=== PATIENT | male | born 1965 | race African-American/Black ===

== ENCOUNTER 2017-12-02 08:51 | Emergency (ER) | payer BC, OTHER ==
[2017-12-02 09:37] VITALS: BMI 27.2
[2017-12-02] MEDS ORDERED: MAG HYDROX/AL HYDROX/SIMETH 30 ML UNIT-DOSE CUP PO ONE (12:16)
[2017-12-02] MEDS ORDERED: PANTOPRAZOLE SODIUM 40 MG in SODIUM CHLORIDE 100 ML IVPB ONE (12:16)
--- NOTE | 2017-12-02 12:31 | PDOC ---
History of Present Illness - General Chief Complaint: Pain, Acute Stated Complaint: ABD PAIN Time Seen by Provider: 12/02/17 11:52 - History of Present Illness Initial Comments: 12/02/17 12:30 "The patient is a 52 year old male with a significant PMH of HTN, hyperthyroidism, BPH, kidney CA (s/p partial nephrectomy), gastritis, and past cigarette use who presents to the emergency department with worsening abdominal pain beginning approximately 2 weeks ago. He describes his abdominal pain as a constant sensation localized in the LUQ with radiation to the mid back. Pt also endorses intermittent diarrhea and constipation. Denies any nausea/vomiting. Denies F/C. Denies association of pain with food. The patient denies chest pain, shortness of breath, headache and dizziness. Denies dysuria, frequency, urgency and hematuria. FMHx: Pertinent for NM, father had NM in his 50s Allergies: NKA Past surgical history: Partial nephrectomy Social history: Former smoker. Occasional alcohol use. No reported drug use. PCP: Dr. Jake Avalos Past History - Past Medical History Allergies/Adverse Reactions: Allergies Allergy/AdvReac Type Severity Reaction Status Date / Time No Known Allergies Allergy Verified 12/02/17 09:31 Home Medications: Ambulatory Orders Amlodipine Besylate [Norvasc -] 5 mg PO DAILY #90 tablet 06/02/15 Cyanocobalamin [Vitamin B12 -] 1,000 mcg PO DAILY #60 tablet 06/02/15 Methimazole [Tapazole -] 5 mg PO TID #90 tablet 06/02/15 Quetiapine Fumarate [Seroquel -] 25 mg PO HS 11/20/16 Esomeprazole Magnesium [Nexium 24Hr] 20 mg PO DAILY #30 tablet. 12/02/17 Anemia: No Asthma: No Cancer: Yes (KIDNEY) Cardiac Disorders: No CVA: No COPD: No DVT: No Dementia: No Diabetes: No GI Disorders: Yes (hx of stomach ulcer that was resolved) Disorders: No HTN: Yes Hypercholesterolemia: No Kidney Stones: (kidney ca) Liver Disease: No Seizures: No Thyroid Disease: Yes (HYPOTHYROID DISEASE) - Surgical History Abdominal Surgery: No Appendectomy: No Cardiac Surgery: No Cholecystectomy: No Lung Surgery: No Neurologic Surgery: No Orthopedic Surgery: No - Suicide/Smoking/Psychosocial Hx Smoking Status: Yes Smoking History: Never smoked Have you smoked in the past 12 months: No Number of Cigarettes Smoked Daily: 3 If you are a former smoker, when did you quit?: 2016 Cigars Per Day: 0 Information on smoking cessation initiated: Yes 'Breaking Loose' booklet given: 12/02/17 Hx Alcohol Use: Yes (OCCASIONAL) Drug/Substance Use Hx: No Substance Use Type: None Hx Substance Use Treatment: No Abd/GI Specific PMHX - Complaint Specific PMHX GERD: No GI Ulcer Disease: No Review of Systems - Review of Systems Comments:: 12/02/17 12:34 "GENERAL/CONSTITUTIONAL: No fever or chills. No weakness. HEAD, EYES, EARS, NOSE AND THROAT: No change in vision. No ear pain or discharge. No sore throat. CARDIOVASCULAR: No chest pain or shortness of breath. RESPIRATORY: No cough, wheezing, or hemoptysis. GASTROINTESTINAL: (+) Abdominal pain. (+) Diarrhea. No nausea, vomiting, or constipation. GENITOURINARY: No dysuria, frequency, or change in urination. MUSCULOSKELETAL: No joint or muscle swelling or pain. No neck or back pain. SKIN: No rash NEUROLOGIC: No headache, vertigo, loss of consciousness, or change in strength/ sensation. ENDOCRINE: No increased thirst. No abnormal weight change. HEMATOLOGIC/LYMPHATIC: No anemia, easy bleeding, or history of blood clots. ALLERGIC/IMMUNOLOGIC: No hives or skin allergy. " *Physical Exam - Vital Signs Last Vital Signs Temp Pulse Resp BP Pulse Ox 97.4 F L 77 18 139/93 100 12/02/17 09:31 12/02/17 09:31 12/02/17 09:31 12/02/17 09:31 12/02/17 09:31 - Physical Exam Comments: 12/02/17 12:34 "GENERAL: Awake, alert, and fully oriented, in no acute distress HEAD: No signs of trauma EYES: PERRLA, EOMI, sclera anicteric, conjunctiva clear ENT: Auricles normal inspection, hearing grossly normal, nares patent, oropharynx clear without exudates. Moist mucosa NECK: Nontender, no stepoffs, Normal ROM, supple, no lymphadenopathy, JVD, or masses LUNGS: Breath sounds equal, clear to auscultation bilaterally. No wheezes, and no crackles HEART: Regular rate and rhythm, normal S1 and S2, no murmurs, rubs or gallops ABDOMEN: +LLQ tenderness and epigastric tenderness. No guarding, no rebound. No masses EXTREMITIES: Normal range of motion, no edema. No clubbing or cyanosis. No cords , erythema, or tenderness NEUROLOGICAL: Cranial nerves II through XII intact. 5/5 strength and sensation in all extremities, Normal speech, normal gait SKIN: Warm, Dry, normal turgor, no rashes or lesions noted. " ED Treatment Course - LABORATORY CBC & Chemistry Diagram: 12/02/17 13:20 12/02/17 13:20 - RADIOLOGY Radiology Studies Ordered: Category Date Time Status ABDOMEN & PELVIS CT WITH CONTR [CT] Stat CT Scan 12/02/17 12:28 Ordered CHEST PA & LAT [RAD] Stat Radiology 12/02/17 12:15 Ordered Medical Decision Making - Medical Decision Making 12/02/17 12:34 52 M with 2 weeks of LLQ pain and diarrhea. Possible colitis vs diverticulitis. Also consider gastritis. - Labs - CTAP - IVF, GI cocktail 12/02/17 16:37 CBC,CMP WBC 4.2 K/mm3 (4.0-10.0) 12/02/17 13:20 Corrected WBC (auto) Cancelled 12/02/17 12:25 RBC 5.30 M/mm3 (4.00-5.60) 12/02/17 13:20 Hgb 16.3 GM/dL (11.7-16.9) 12/02/17 13:20 Hct 49.6 % (35.4-49) H 12/02/17 13:20 MCV 93.5 fl (80-96) 12/02/17 13:20 MCH 30.8 pg (25.7-33.7) 12/02/17 13:20 MCHC 32.9 g/dl (32.0-35.9) 12/02/17 13:20 RDW 14.3 % (11.9-15.9) 12/02/17 13:20 Plt Count 116 K/MM3 (134-434) L 12/02/17 13:20 MPV 8.7 fl (7.5-11.1) D 12/02/17 13:20 Neutrophils % 62.5 % (42.8-82.8) D 12/02/17 13:20 Lymphocytes % 27.0 % (8-40) D 12/02/17 13:20 Monocytes % 8.9 % (3.8-10.2) D 12/02/17 13:20 Eosinophils % 1.2 % (0-4.5) D 12/02/17 13:20 Basophils % 0.4 % (0-2.0) D 12/02/17 13:20 Nucleated RBC % Cancelled 12/02/17 12:25 Platelet Estimate Cancelled 12/02/17 12:25 Platelet Comment Cancelled 12/02/17 12:25 Sodium 139 mmol/L (136-145) 12/02/17 13:20 Potassium 4.3 mmol/L (3.5-5.1) 12/02/17 13:20 Chloride 105 mmol/L (98-107) 12/02/17 13:20 Carbon Dioxide 30 mmol/L (21-32) 12/02/17 13:20 Anion Gap 4 (8-16) L 12/02/17 13:20 BUN 11 mg/dL (7-18) D 12/02/17 13:20 Creatinine 1.1 mg/dL (0.7-1.3) 12/02/17 13:20 Creat Clearance w eGFR > 60 (>60) 12/02/17 13:20 Random Glucose 87 mg/dL (74-106) 12/02/17 13:20 Calcium 8.7 mg/dL (8.5-10.1) 12/02/17 13:20 Total Bilirubin 0.8 mg/dL (0.2-1.0) D 12/02/17 13:20 AST 24 U/L (15-37) 12/02/17 13:20 ALT 32 U/L (12-78) 12/02/17 13:20 Alkaline Phosphatase 96 U/L (45-117) 12/02/17 13:20 Creatine Kinase 162 IU/L (39-308) 12/02/17 13:20 Creatine Kinase Index 0.6 % (0.0-5.0) 12/02/17 13:20 CK-MB (CK-2) < 1.000 ng/mL (0.5-3.6) 12/02/17 13:20 Troponin I < 0.02 ng/ml (0.00-0.05) 12/02/17 13:20 Total Protein 7.1 g/dl (6.4-8.2) 12/02/17 13:20 Albumin 3.9 g/dl (3.4-5.0) 12/02/17 13:20 Lipase 203 U/L (73-393) 12/02/17 13:20 CTAP unremarkable. Pt reassessed s/p GI cocktail - now feels significantly better. Tolerating PO. Clinically stable for DC. *DC/Admit/Observation/Transfer Diagnosis at time of Disposition: Gastritis - Discharge Dispostion Disposition: HOME - Referrals Referrals: Jake Avalos MD [Primary Care Provider] - - Patient Instructions Printed Discharge Instructions: DI for Gastritis Additional Instructions: Follow up with your GI doctor within 1 week. You may need an endoscopy to further evaluate your stomach pain. Take nexium as prescribed to treat your stomach pain. If you experience worsening pain, vomiting, or any other concerning symptoms, return to the ER immediately. - Post Discharge Activity - Attestations Physician Attestion: 12/02/17 16:42 I, Dr. Mirza Yang MD, attest that this document has been prepared under my direction and personally reviewed by me in its entirety. I further attest, that it accurately reflects all work, treatment, procedures and medical decision -making performed by me.
[2017-12-02] MEDS ORDERED: PANTOPRAZOLE SODIUM 40 MG VIAL ONE (12:33)
[2017-12-02] MEDS ORDERED: MAG HYDROX/AL HYDROX/SIMETH 30 ML UNIT-DOSE CUP ONE (12:33)
[2017-12-02 13:31] LABS: BASO % 0.4 % (0-2.0); EOS % 1.2 % (0-4.5); HEMATOCRIT 49.6 % (35.4-49); HEMOGLOBIN 16.3 GM/dL (11.7-16.9); MCH 30.8 pg (25.7-33.7); MCHC 32.9 g/dl (32.0-35.9); MEAN CELL VOLUME 93.5 fl (80-96); MEAN PLT VOLUME 8.7 fl (7.5-11.1); MONO % 8.9 % (3.8-10.2); NEUT % 62.5 % (42.8-82.8); PLATELET COUNT 116 K/MM3 (134-434); RDW 14.3 % (11.9-15.9); WHITE BLOOD COUNT 4.2 K/mm3 (4.0-10.0)
[2017-12-02 14:11] LABS: ALBUMIN 3.9 g/dl (3.4-5.0); ALK PHOS 96 U/L (45-117); ANION GAP 4 (8-16); BILIRUBIN,TOTAL 0.8 mg/dL (0.2-1.0); BLOOD UREA NITROGEN 11 mg/dL (7-18); CALCIUM 8.7 mg/dL (8.5-10.1); CHLORIDE 105 mmol/L (98-107); CO2 30 mmol/L (21-32); CREATININE 1.1 mg/dL (0.7-1.3); GLUCOSE,RANDOM 87 mg/dL (74-106); SGPT/ALT 32 U/L (12-78); SODIUM 139 mmol/L (136-145); TOT PROT 7.1 g/dl (6.4-8.2)
[2017-12-02 14:13] LABS: LIPASE 203 U/L (73-393); POTASSIUM 4.3 mmol/L (3.5-5.1); SGOT/AST 24 U/L (15-37)
[2017-12-02] MEDS ORDERED: ACETAMINOPHEN 325 MG TABLET (FP) PO ONE (15:19)
[2017-12-02] MEDS ORDERED: ACETAMINOPHEN 325 MG TABLET (FP) ONE (16:36)
[2017-12-02 17:33] VITALS: BP 140/74; PULSE 81; TEMP 98.1
== END 2017-12-02 17:33 | disposition home or self-care (01) ==
LOC: JER 08:51
PROC: 3E033GC Introduction of Other Therapeutic Substance into Peripheral Vein, Percutaneous Approach (ICD-10-PCS; principal; 2017-12-02)
DX: K29.70 Gastritis, unspecified, without bleeding (principal); I10 Essential (primary) hypertension; E05.90 Thyrotoxicosis, unspecified without thyrotoxic crisis or storm; N40.0 Benign prostatic hyperplasia without lower urinary tract symptoms; Z85.528 Personal history of other malignant neoplasm of kidney; Z87.891 Personal history of nicotine dependence; Z90.5 Acquired absence of kidney
CPT/HCPCS: 36415; 71046-TC; 74177-TC; 80053; 82550; 82553; 83690; 84484; 85025; 99283-25

== ENCOUNTER 2018-03-05 12:59 | Emergency (ER) | payer BC, OTHER ==
[2018-03-05 13:11] VITALS: BP 145/69; PULSE 77; TEMP 98.1; BMI 27.9
--- NOTE | 2018-03-05 14:15 | PDOC ---
History of Present Illness - General Chief Complaint: Sore Throat Stated Complaint: THROAT PAIN Time Seen by Provider: 03/05/18 13:26 History Source: Patient, Old Records Exam Limitations: No Limitations - History of Present Illness Initial Comments: 03/05/18 14:10 This is a 52-year-old male past medical history of hypertension and hypothyroidism who presents emergency Department with 1 month of sore throat. Patient states he is under the care of his primary doctor, sheet metal worker supervisor and ENT who've all been doing evaluations of this throat pain. Patient states he has been on 2 different rounds of antibiotics but does not remember the names of the medications. It isn't antibiotics she was given Zantac with the original antibiotics and was changed to Prilosec with the second round of antibiotics. Patient is unsure to what the names of antibiotics were or why he was taken them. Review of the patient's chart reveals she was positive for H. pylori testing on 02/24/18. He denies fevers, chills, shortness of breath, chest pain, vomiting, nausea, vomiting, diarrhea. Past History - Past Medical History Allergies/Adverse Reactions: Allergies Allergy/AdvReac Type Severity Reaction Status Date / Time No Known Allergies Allergy Verified 03/05/18 13:07 Home Medications: Ambulatory Orders Amlodipine Besylate [Norvasc -] 5 mg PO DAILY #90 tablet 06/02/15 Anemia: No Asthma: No Cancer: Yes (KIDNEY) Cardiac Disorders: No CVA: No COPD: No DVT: No Dementia: No Diabetes: No GI Disorders: Yes (hx of stomach ulcer that was resolved) Disorders: No HTN: Yes Hypercholesterolemia: No Kidney Stones: (kidney ca) Liver Disease: No Seizures: No Thyroid Disease: Yes (HYPOTHYROID DISEASE) - Surgical History Abdominal Surgery: No Appendectomy: No Cardiac Surgery: No Cholecystectomy: No Lung Surgery: No Neurologic Surgery: No Orthopedic Surgery: No - Suicide/Smoking/Psychosocial Hx Smoking Status: Yes Smoking History: Never smoked Have you smoked in the past 12 months: No Number of Cigarettes Smoked Daily: 3 If you are a former smoker, when did you quit?: 2016 Cigars Per Day: 0 Information on smoking cessation initiated: No 'Breaking Loose' booklet given: 12/02/17 Hx Alcohol Use: No Drug/Substance Use Hx: No Substance Use Type: None Hx Substance Use Treatment: No Review of Systems - Review of Systems Able to Perform ROS?: Yes Is the patient limited Greek proficient: No Constitutional: No: Symptoms Reported HEENTM: Yes: See HPI Respiratory: No: Symptoms reported Cardiac (ROS): No: Symptoms Reported ABD/GI: No: Symptoms Reported : No: Symptoms Reported Musculoskeletal: No: Symptoms Reported Integumentary: No: Symptoms Reported Neurological: No: Symptoms reported Endocrine: No: Symptoms Reported Hematologic/Lymphatic: No: Symptoms Reported *Physical Exam - Vital Signs Last Vital Signs Temp Pulse Resp BP Pulse Ox 98.1 F 77 17 145/69 97 03/05/18 13:07 03/05/18 13:07 03/05/18 13:07 03/05/18 13:07 03/05/18 13:07 - Physical Exam General Appearance: Yes: Appropriately Dressed. No: Apparent Distress HEENT: positive: TMs Normal, Pharynx Normal Neck: positive: Trachea midline, Supple Respiratory/Chest: positive: Lungs Clear, Normal Breath Sounds. negative: Respiratory Distress, Accessory Muscle Use Cardiovascular: positive: Regular Rhythm, Regular Rate. negative: Murmur Gastrointestinal/Abdominal: positive: Normal Bowel Sounds, Soft. negative: Tender Musculoskeletal: positive: Normal Inspection. negative: CVA Tenderness Extremity: positive: Normal Inspection, Normal Range of Motion Integumentary: positive: Normal Color, Dry, Warm Neurologic: positive: Alert, Normal Response Medical Decision Making - Medical Decision Making 03/05/18 14:15 A/P: 52-year-old male with history of hypertension and hyperthyroidism with 1 month of sore throat Oropharynx clear without erythema or exudates present. Uvula midline No cervical lymphadenopathy present Patient with ultrasound report from January revealing 2 mm x 3 mm thyroid cyst. Laboratory testing positive for H. pylori infection 02/24/18. Lungs clear to auscultation bilaterally Abdomen soft nontender nondistended. It has been explained to the patient that his pain could be secondary from the thyroid cyst or could be some acid reflux related to his H. pylori infection. It was explained to the patient that he needs to continue to follow up with his primary doctor and specialist for continued evaluation of this chronic issue. Patient verbalizes understanding of discharge instructions. *DC/Admit/Observation/Transfer Diagnosis at time of Disposition: Chronic throat pain - Discharge Dispostion Disposition: HOME Condition at time of disposition: Stable Admit: No - Referrals Referrals: Jake Avalos MD [Primary Care Provider] - - Patient Instructions Additional Instructions: Patient appointment to follow-up with her ENT specialist and your primary doctor within the next week. Continue take Tylenol as needed for pain. Avoid medicines such as ibuprofen and Naprosyn as they may cause abdominal pain and bleeding. Return to emergency department for any concerns. - Post Discharge Activity
== END 2018-03-05 14:22 | disposition home or self-care (01) ==
LOC: JERFT 12:59
DX: R07.0 Pain in throat (principal); I10 Essential (primary) hypertension; E03.9 Hypothyroidism, unspecified; Z85.528 Personal history of other malignant neoplasm of kidney
CPT/HCPCS: 99281-25

== ENCOUNTER 2019-08-25 10:06 | Emergency (ER) | payer OTHER, BC ==
[2019-08-25 10:12] VITALS: BP 137/77; PULSE 75; TEMP 98.6; BMI 27.2
[2019-08-25] MEDS ORDERED: KETOROLAC TROMETHAMINE 30 MG/1 ML VIAL IM ONE (11:04)
[2019-08-25] MEDS ORDERED: KETOROLAC TROMETHAMINE 30 MG/1 ML VIAL ONE (11:05)
[2019-08-25] MEDS ORDERED: MECLIZINE HCL 25 MG TABLET (FP) PO ONE (11:08)
[2019-08-25] MEDS ORDERED: IBUPROFEN 400 MG TABLET (FP) PO ONE ×2 (11:08→11:11)
[2019-08-25] MEDS ORDERED: MECLIZINE HCL 12.5 MG TABLET ONE (11:11)
--- NOTE | 2019-08-25 11:14 | PDOC ---
History of Present Illness - General Chief Complaint: Head/Neck problem Stated Complaint: LT. NECK PAIN/ DIZZINESS Time Seen by Provider: 08/25/19 10:28 - History of Present Illness Initial Comments: 08/25/19 11:10 CHIEF COMPLAINT: neck pain HISTORY OF PRESENT ILLNESS: 54 yo M with hx of HTN (on Norvasc, per pt compliant with meds) presents to fast track with left sided neck pain x 3 days, now to left shoulder today. Patient reports waking up with neck soreness 3 days ago and "thought it would go away but now it's hurting to my left shoulder too". Patient reports pain is worse with movement, especially turning his neck. He denies any chest pain, SOB, palpitations, weakness. Denies fever, chills, nausea, vomiting, diarrhea. Patient also c/o of dizziness, denies LOC, weakness, or headache. No recent travel or sick contacts. PAST MEDICAL HISTORY: HTN FAMILY HISTORY: Father - [place]. SOCIAL HISTORY: Daily smoker, 1-2 cigarettes daily. Denies alcohol, illicit drug use. SURGICAL HISTORY: Denies ALLERGIES: No known drug allergies REVIEW OF SYSTEMS General/Constitutional: Denies fever or chills. Denies weakness, weight change. HEENT: Denies change in vision. Denies ear pain or discharge. Denies sore throat. Cardiovascular: Denies chest pain or shortness of breath. Respiratory: Denies cough, wheezing, or hemoptysis. Gastrointestinal: Denies nausea, vomiting, diarrhea or constipation. Denies rectal bleeding. Genitourinary: Denies dysuria, frequency, or change in urination. Musculoskeletal: Left neck pain, radiating to L shoulder. Skin and breasts: Denies rash or easy bruising. Neurologic: Denies headache, vertigo, loss of consciousness, or loss of sensation. Psychiatric: Denies depression or anxiety. PHYSICAL EXAM General Appearance: Well-appearing, appropriately dressed. No apparent distress , no intoxication. HEENT: EOMI, PERRLA, normal ENT inspection, normal voice, TMs normal, pharynx normal. No conjunctival pallor. No photophobia, scleral icterus. Neck: Supple. Trachea midline. No tenderness, rigidity, carotid bruit, stridor , lymphadenopathy, or thyromegaly. Respiratory/Chest: Lungs CTAB. No shortness of breath, chest tenderness, respiratory distress, accessory muscle use. No crackles, rales, rhonchi, stridor , wheezing, dullness Cardiovascular: RRR. S1, S2. No JVD, murmur, bradycardia, tachycardia. Vascular Pulses: Dorsalis-Pedis (R): 2+, Dorsalis-Pedis (L): 2+ Gastrointestinal/Abdominal: Normal bowel sounds. Abdomen soft, non-distended. No tenderness or rebound tenderness. No organomegaly, pulsatile mass, guarding , hernia, hepatomegaly, splenomegaly. Musculoskeletal/Extremities: Normal inspection. FROM of all extremities, normal capillary refill. Pelvis Stable. No CVA tenderness. No tenderness to extremities, pedal edema, swelling, erythema or deformity. Integumentary: Appropriate color, dry, warm. No cyanosis, erythema, jaundice or rash Neurologic: forensic economist II-XII intact. Fully oriented, alert. Appropriate mood/affect. Motor strength 5/5. No appreciable EOM palsy, facial droop or sensory deficit. Past History - Past Medical History Allergies/Adverse Reactions: Allergies Allergy/AdvReac Type Severity Reaction Status Date / Time No Known Allergies Allergy Verified 03/05/18 13:07 Home Medications: Ambulatory Orders Amlodipine Besylate [Norvasc -] 5 mg PO DAILY #90 tablet 06/02/15 Cyclobenzaprine HCl 10 mg PO HS #10 tablet 08/25/19 Anemia: No Asthma: No Cancer: Yes (KIDNEY) Cardiac Disorders: No CVA: No COPD: No DVT: No Dementia: No Diabetes: No GI Disorders: Yes (hx of stomach ulcer that was resolved) Disorders: No HTN: Yes Hypercholesterolemia: No Kidney Stones: (kidney ca) Liver Disease: No Seizures: No Thyroid Disease: Yes (HYPOTHYROID DISEASE) - Surgical History Abdominal Surgery: No Appendectomy: No Cardiac Surgery: No Cholecystectomy: No Lung Surgery: No Neurologic Surgery: No Orthopedic Surgery: No - Psycho Social/Smoking Cessation Hx Smoking Status: Yes Smoking History: Current every day smoker Have you smoked in the past 12 months: Yes Number of Cigarettes Smoked Daily: 10 If you are a former smoker, when did you quit?: 2016 Cigars Per Day: 0 Information on smoking cessation initiated: No 'Breaking Loose' booklet given: 12/02/17 Hx Alcohol Use: No Drug/Substance Use Hx: No Substance Use Type: None Hx Substance Use Treatment: No *Physical Exam - Vital Signs Last Vital Signs Temp Pulse Resp BP Pulse Ox 98.6 F 75 18 137/77 96 08/25/19 10:10 08/25/19 10:10 08/25/19 10:10 08/25/19 10:10 08/25/19 10:10 Medical Decision Making - Medical Decision Making 08/25/19 11:14 54 yo M with hx of HTN (on Norvasc, per pt compliant with meds) presents to fast track with left sided neck/shoulder pain and dizziness. -ekg -Motrin -Meclizine 08/25/19 11:14 no significant change on ekg from prior of 2014 patient continuously denies chest pain or SOB likely cervical muscle strain Advised patient to take medication as prescribed and follow up with PCP within the next week. Advised patient of signs and symptoms for return to ED. Patient verbalized understanding and agrees to plan. Discharge - Discharge Information Problems reviewed: Yes Clinical Impression/Diagnosis: Cervical muscle strain Qualifiers: Encounter type: initial encounter Qualified Code(s): S16.1XXA - Strain of muscle, fascia and tendon at neck level, initial encounter Condition: Stable Disposition: HOME - Admission No - Additional Discharge Information Prescriptions: Cyclobenzaprine HCl 10 mg PO HS #10 tablet - Follow up/Referral - Patient Discharge Instructions Patient Printed Discharge Instructions: DI for Cervical Muscle Strain Additional Instructions: Please take medications as prescribed. Follow up with your primary care doctor within the next 3-5 days. If you develop any chest pain, shortness of breath, weakness, or any new or worsening symptoms, please return to the ER. - Post Discharge Activity
--- NOTE | 2019-08-25 12:50 | EKG ---
Test Reason : Blood Pressure : / mmHG Vent. Rate : 072 BPM Atrial Rate : 072 BPM P-R Int : 178 ms QRS Dur : 102 ms QT Int : 402 ms P-R-T Axes : 065 -01 041 degrees QTc Int : 440 ms NORMAL SINUS RHYTHM INCOMPLETE RIGHT BUNDLE BRANCH BLOCK BORDERLINE ECG WHEN COMPARED WITH ECG OF 01-JUN-2015 02:25, NO SIGNIFICANT CHANGE WAS FOUND Confirmed by Chuy Jimenez MD ([id number]) on 08/25/2019 12:49:53 PM Referred By: Confirmed By:Chuy Jimenez MD
== END 2019-08-25 11:28 | disposition home or self-care (01) ==
LOC: JERFT 10:06
DX: S16.1XXA Strain of muscle, fascia and tendon at neck level, initial encounter (principal); I10 Essential (primary) hypertension; E03.9 Hypothyroidism, unspecified; Z85.528 Personal history of other malignant neoplasm of kidney; Z87.19 Personal history of other diseases of the digestive system; F17.210 Nicotine dependence, cigarettes, uncomplicated; X58.XXXA Exposure to other specified factors, initial encounter; Y93.89 Activity, other specified; Y92.89 Other specified places as the place of occurrence of the external cause; Y99.8 Other external cause status
CPT/HCPCS: 93005; 93010; 99282-25

== ENCOUNTER 2020-05-16 14:00 | Emergency (ER) | payer OTHER, BC ==
[2020-05-16 14:06] VITALS: BP 165/78; PULSE 98; TEMP 98; BMI 27.9
--- NOTE | 2020-05-16 14:09 | PDOC ---
Rapid Medical Evaluation Chief Complaint: Edema Time Seen by Provider: 05/16/20 14:06 Medical Evaluation: Allergies Allergy/AdvReac Type Severity Reaction Status Date / Time No Known Allergies Allergy Verified 05/16/20 14:03 Vital Signs Temp Pulse Resp BP Pulse Ox 98.0 F 98 H 20 165/78 100 05/16/20 14:04 05/16/20 14:04 05/16/20 14:04 05/16/20 14:04 05/16/20 14:04 05/16/20 14:06 I have performed a brief in-person evaluation of this patient. The patient presents with a chief complaint of:b/l testicular pain w/ dysuria Pertinent physical exam findings: stable I have ordered the following:ua/cx/Gc/chlam The patient will proceed to the ED for further evaluation. 05/16/20 14:08 Discharge Disposition - Diagnosis Dysuria - Referrals - Patient Instructions - Post Discharge Activity
--- NOTE | 2020-05-16 14:33 | PDOC ---
History of Present Illness <Aaliyah Sheridan - Last Filed: 05/16/20 16:20> - General History Source: Patient Exam Limitations: No Limitations - History of Present Illness Initial Comments: 05/16/20 14:31 54 year old male pmhx of HTN, BPH, RCC (s/p partial nephrectomy) presents to the ED complaining of testicular pain and swelling x 2 weeks with associated dysuria. Pt states that the pain and swelling worsens throughout the day. Pt is sexually active with 1 partner and has not had these symptoms in the past. Pt denies any difficulty urinating, any bulging mass in the scrotum or trouble passing stools. Pt otherwise denies: fevers, chills, syncope, lightheadedness, dizziness, headaches, chest pain, shortness of breath, palpitations, back pain, abdominal pain, nausea, vomiting, diarrhea, constipation, melena, hematochezia, hematuria. <Doug Du - Last Filed: 05/16/20 16:58> - General Chief Complaint: Edema Stated Complaint: URINARY PROBLEM Time Seen by Provider: 05/16/20 14:06 Past History <Aaliyah Sheridan - Last Filed: 05/16/20 16:20> - Medical History Anemia: No Asthma: No Cancer: Yes (KIDNEY) Cardiac Disorders: No CVA: No COPD: No DVT: No Dementia: No Diabetes: No GI Disorders: Yes (hx of stomach ulcer that was resolved) Disorders: No HTN: Yes Hypercholesterolemia: No Kidney Stones: (kidney ca) Liver Disease: No Seizures: No Thyroid Disease: Yes (HYPOTHYROID DISEASE) - Surgical History Abdominal Surgery: No Appendectomy: No Cardiac Surgery: No Cholecystectomy: No Lung Surgery: No Neurologic Surgery: No Orthopedic Surgery: No - Psycho-Social/Smoking History Smoking Status: Yes Smoking History: Never smoked Have you smoked in the past 12 months: Yes Number of Cigarettes Smoked Daily: 10 If you are a former smoker, when did you quit?: 2016 Cigars Per Day: 0 'Breaking Loose' booklet given: 12/02/17 - Substance Abuse Hx (Audit-C & DAST Scrn) How often the patient has a drink containing alcohol: Never Score: In Men: 4 or > Positive; In Women: 3 or > Positive: 0 Screen Result (Pos requires Nsg. Audit-10AR): Negative In the last yr the pt used illegal drug/Rx for NonMed reason: No Score: Yes response is considered Positive: 0 Screen Result (Positive result requires Nsg. DAST-10): Negative <FlorianDoug - Last Filed: 05/16/20 16:58> - Medical History Allergies/Adverse Reactions: Allergies Allergy/AdvReac Type Severity Reaction Status Date / Time No Known Allergies Allergy Verified 05/16/20 14:03 Home Medications: Ambulatory Orders Amlodipine Besylate [Norvasc -] 5 mg PO DAILY #90 tablet 06/02/15 Cyclobenzaprine HCl 10 mg PO HS #10 tablet 08/25/19 Review of Systems - Review of Systems Constitutional: No: Chills, Fever, Weakness HEENTM: No: Blurred Vision Respiratory: No: Shortness of Breath Cardiac (ROS): No: Chest Pain, Lightheadedness ABD/GI: No: Abdominal Distended, Nausea, Vomiting : Yes: Burning, Dysuria, Testicular Swelling, Testicular Pain. No: Discharge, Flank Pain, Hematuria Musculoskeletal: No: Back Pain, Joint Pain Integumentary: No: Bruising Neurological: No: Headache, Numbness, Paresthesia, Tingling, Tremors, Weakness <FlorianDoug - Last Filed: 05/16/20 16:58> *Physical Exam - Vital Signs Last Vital Signs Temp Pulse Resp BP Pulse Ox 98.0 F 98 H 20 165/78 100 05/16/20 14:04 05/16/20 14:04 05/16/20 14:04 05/16/20 14:04 05/16/20 14:04 <Aaliyah Sheridan - Last Filed: 05/16/20 16:20> - Vital Signs Last Vital Signs Temp Pulse Resp BP Pulse Ox 98.0 F 98 H 20 165/78 100 05/16/20 14:04 05/16/20 14:04 05/16/20 14:04 05/16/20 14:04 05/16/20 14:04 - Physical Exam 05/16/20 14:36 Gen: AAOx 3, no acute distress, comfortable, no signs of respiratory distress HENT: atraumatic, normocephalic with no laceration or contusion. Nasal mucosa without erythema. Oropharynx without erythema or exudates. Mucous membranes moist. EYES: PERRL, EOM intact, conjunctiva pink NECK: supple; trachea midline; no JVD, no lymphadenopathy, or thyromegaly CV: RRR no murmurs, gallops, or rubs. CHEST: CTA b/l no wheezing, rales or rhonchi ABD: +BS/ND. no TTP; soft, no rebound, no guarding GENITAL: + Non-tender, non-edematous, uncircumcised penis with no discharge/bleeding from meatus, tender and edematous b/l descended testes b/l vertical lies R>L; no rashes/lesions/masses/crepitus/LAD; no exudate/bleeding. no inguinal hernia expressed EXTREMITY: no cyanosis or erythema. 2+ dorsalis pedis, posterior tibial, and radial pulse. No pedal edema; no calf swelling or tenderness SKIN: no rash, warm and dry, no diaphoresis HEME: no purpura or ecchymosis NEURO: normal speech, CN II-XII intact, sensation intact, normal gait, no cerebellar deficits MS: 5/5 strength in all extremities, FROM intact in all extremities. <Doug Du - Last Filed: 05/16/20 16:58> ED Treatment Course - RADIOLOGY Radiology Studies Ordered: Category Date Time Status SCROTUM AND CONTENTS US [US] Stat Ultrasound 05/16/20 14:29 Ordered <Doug Du - Last Filed: 05/16/20 16:58> Medical Decision Making - Medical Decision Making The patient was seen and evaluated in conjunction with midlevel provider under my direct supervision, ancillary studies were reviewed. I agree with the plan as outlined with RAMIN Du. HPI, workup/dispo as outlined. VS reviewed, wnl. Vital Signs Temp Pulse Resp BP Pulse Ox 98.0 F 98 H 20 165/78 100 05/16/20 14:04 05/16/20 14:04 05/16/20 14:04 05/16/20 14:04 05/16/20 14:04 unremarkable exam, well appearing, nontoxic Abdomen soft nontender. exam done with ARMIN Du - normal external genitalia, no lesions, normal appearing penis no scrotal tenderness or edema, normal lie no palp hernia with valsalva. scrotal sono UA gc/chlamydia testing urology followup as outpatient. anticipate discharge, pcp followup, return precautions 05/16/20 16:18 05/16/20 16:20 <Aaliyah Sheridan - Last Filed: 05/16/20 16:20> - Medical Decision Making 53-year-old male presenting with 2 weeks of dysuria and testicular swelling. Vital signs stable Plan: We will obtain UA UC gonorrhea and chlamydia as well as scrotal ultrasound. Will reassess based on results. Ultrasound shows a calcified density in the left testicle as well as a prominent right epididymal head no signs of testicular torsion or orchitis bilaterally a small right hydrocele and a small left spermatocele UA WNl GC results pending pt to be called with results if abnormal. Pt to follow up with urology and PCP. Pt appears well and is safe and stable for discharge. Supportive care instructions explained and given to pt. Reasons to return emergently to ER explained and given. Importance of follow up with PMD and other specialists as indicated stressed to pt. Pt verbalized understanding of instructions. Pt to follow up with PMD in 2 days. <FlorianDoug - Last Filed: 05/16/20 16:58> Discharge <Aaliyah Sheridan Hazel - Last Filed: 05/16/20 16:20> - Discharge Information Problems reviewed: Yes - Admission No <Doug Du - Last Filed: 05/16/20 16:58> - Discharge Information Clinical Impression/Diagnosis: Dysuria Condition: Stable Disposition: HOME - Follow up/Referral Referrals: Shaka Houston PA [Primary Care Provider] - Mor Meza MD [Staff Physician] - - Patient Discharge Instructions Patient Printed Discharge Instructions: DI for Dysuria -- Adult Additional Instructions: Please see a urologist SHANAT - Post Discharge Activity Work/Back to School Note: Back to Work
[2020-05-16 16:46] LABS: URINE APPEARANCE CLEAR; URINE BILIRUBIN NEGATIVE (NEGATIVE); URINE COLOR YELLOW; URINE GLUCOSE (UA) NEGATIVE (NEGATIVE); URINE KETONE TRACE (NEGATIVE); URINE LEUK ESTERASE NEGATIVE (NEGATIVE); URINE NITRITE NEGATIVE (NEGATIVE); URINE PROTEIN NEGATIVE (NEGATIVE)
== END 2020-05-16 17:15 | disposition home or self-care (01) ==
LOC: JER 14:00
DX: R30.0 Dysuria (principal)
CPT/HCPCS: 36415; 76870-TC; 81003; 87086; 87491; 87591; 99284-25

== ENCOUNTER 2020-10-28 20:21 | Emergency (ER) | payer OTHER, BC ==
[2020-10-28 20:26] VITALS: TEMP 97.8; BMI 28.7
[2020-10-28] MEDS ORDERED: ASPIRIN 81 MG CHEWABLE TABLETS PO ONE ×2 (21:41→21:54)
[2020-10-28] MEDS ORDERED: ASPIRIN 81 MG CHEWABLE TABLETS ONE (21:56)
[2020-10-28 22:20] LABS: BASO % 0.3 % (0-2.0); HEMATOCRIT 46.5 % (35.4-49); HEMOGLOBIN 15.9 GM/dL (11.7-16.9); MCH 31.7 pg (25.7-33.7); MCHC 34.2 g/dl (32.0-35.9); MEAN CELL VOLUME 92.8 fl (80-96); MEAN PLT VOLUME 9.1 fl (7.5-11.1); MONO % 12.9 % (3.8-10.2); NEUT % 56.8 % (42.8-82.8); PLATELET COUNT 126 K/MM3 (134-434); RBC 5.01 M/mm3 (4.00-5.60); RDW 14.2 % (11.9-15.9); WHITE BLOOD COUNT 4.2 K/mm3 (4.0-10.0)
[2020-10-28 22:43] LABS: CHLORIDE 106 mmol/L (98-107); POTASSIUM 3.4 mmol/L (3.5-5.1); SODIUM 143 mmol/L (136-145)
[2020-10-28 22:45] LABS: ALBUMIN 3.9 g/dl (3.4-5.0); ANION GAP 8 MMOL/L (8-16); BLOOD UREA NITROGEN 8.9 mg/dL (7-18); CALCIUM 8.4 mg/dL (8.5-10.1); CO2 29 mmol/L (21-32)
[2020-10-28 22:46] LABS: GLUCOSE,RANDOM 117 mg/dL (74-106)
[2020-10-28 22:49] LABS: CREATININE 1.2 mg/dL (0.55-1.3); SGOT/AST 20 U/L (15-37)
[2020-10-28 22:50] LABS: TOT PROT 6.9 g/dl (6.4-8.2)
[2020-10-28 22:51] LABS: ALK PHOS 96 U/L (45-117)
[2020-10-28 23:14] LABS: BILIRUBIN,TOTAL 0.4 mg/dL (0.2-1); SGPT/ALT 32 U/L (13-61)
[2020-10-28 23:35] VITALS: BP 131/83; PULSE 80
== END 2020-10-29 01:40 | disposition home or self-care (01) ==
LOC: JER 20:21
DX: R07.9 Chest pain, unspecified (principal)
CPT/HCPCS: 36415; 71045-TC-FY; 80053; 82550; 82553; 84484; 85025; 93005; 93010; 99285-25

== ENCOUNTER 2020-11-10 17:48 | Emergency (ER) | payer OTHER, BC ==
[2020-11-10 18:18] VITALS: BMI 24.3
[2020-11-10] MEDS ORDERED: MAG HYDROX/AL HYDROX/SIMETH 30 ML UNIT-DOSE CUP PO ONE (19:41)
[2020-11-10] MEDS ORDERED: LACTATED RINGERS SOLUTION 1000 ML INFUS.BAG IV ONE (19:41)
[2020-11-10] MEDS ORDERED: FAMOTIDINE 20 MG/50 ML IVPB 20 MG/50 ML MG IVPB ONE ×2 (19:41→19:47)
[2020-11-10] MEDS ORDERED: ACETAMINOPHEN 1000 MG/100 ML VIAL (NON FORMULARY) IVPB ONE (19:41)
[2020-11-10] MEDS ORDERED: MAG HYDROX/AL HYDROX/SIMETH 30 ML UNIT-DOSE CUP ONE (19:47)
[2020-11-10] MEDS ORDERED: ACETAMINOPHEN INJECTION 100 ML IVPB ONE (19:47)
[2020-11-10 20:13] LABS: BASO % 0.1 % (0-2.0); EOS % 0.2 % (0-4.5); HEMATOCRIT 48.3 % (35.4-49); HEMOGLOBIN 16.9 GM/dL (11.7-16.9); LYMPH % 8.2 % (8-40); MCH 32.3 pg (25.7-33.7); MEAN CELL VOLUME 92.3 fl (80-96); MEAN PLT VOLUME 8.7 fl (7.5-11.1); MONO % 13.2 % (3.8-10.2); NEUT % 78.3 % (42.8-82.8); PLATELET COUNT 120 K/MM3 (134-434); RBC 5.23 M/mm3 (4.00-5.60); RDW 14.2 % (11.9-15.9); WHITE BLOOD COUNT 5.7 K/mm3 (4.0-10.0)
[2020-11-10 20:22] LABS: INR 1.01 (0.83-1.09); PROTHROMBIN TIME (PATIENT) 12.4 SEC (9.7-13.0)
[2020-11-10 20:35] LABS: CHLORIDE 100 mmol/L (98-107); POTASSIUM 3.5 mmol/L (3.5-5.1); SODIUM 135 mmol/L (136-145)
[2020-11-10 20:38] LABS: ALBUMIN 4.6 g/dl (3.4-5.0); ANION GAP 6 MMOL/L (8-16); BLOOD UREA NITROGEN 10.6 mg/dL (7-18); CO2 29 mmol/L (21-32); GLUCOSE,RANDOM 93 mg/dL (74-106); LIPASE 319 U/L (73-393)
[2020-11-10 20:41] LABS: CREATININE 1.2 mg/dL (0.55-1.3); SGOT/AST 27 U/L (15-37); SGPT/ALT 45 U/L (13-61)
[2020-11-10 20:42] LABS: BILIRUBIN,TOTAL 0.4 mg/dL (0.2-1)
[2020-11-10 20:43] LABS: TOT PROT 7.7 g/dl (6.4-8.2)
[2020-11-10 20:44] LABS: ALK PHOS 109 U/L (45-117)
[2020-11-10] MEDS ORDERED: SODIUM CHLORIDE 1,000 ML IV SCH (21:00)
[2020-11-10 21:59] VITALS: BP 138/86; PULSE 89; TEMP 98.6
[2020-11-10 22:17] LABS: LDH 194 U/L (87-246)
== END 2020-11-10 21:59 | disposition home or self-care (01) ==
LOC: JER 17:48
DX: U07.1 COVID-19 (principal)
CPT/HCPCS: 36415; 71045-TC-FY; 80053; 82728; 83615; 83690; 84484; 85025; 85610; 85730; 86140; 93005; 93010; 99285-25; C9803; J0131; U0003

== ENCOUNTER 2020-12-08 16:43 | Emergency (ER) | payer OTHER, BC ==
[2020-12-08 17:23] VITALS: BMI 63.2
[2020-12-08] MEDS ORDERED: MAG HYDROX/AL HYDROX/SIMETH 30 ML UNIT-DOSE CUP PO ONE (19:02)
[2020-12-08] MEDS ORDERED: FAMOTIDINE 20 MG/50 ML IVPB 20 MG/50 ML MG IVPB ONE ×2 (19:02→19:34)
[2020-12-08 19:27] LABS: BASO % 0.3 % (0-2.0); EOS % 0.6 % (0-4.5); HEMATOCRIT 45.6 % (35.4-49); HEMOGLOBIN 15.8 GM/dL (11.7-16.9); LYMPH % 27.3 % (8-40); MCH 31.8 pg (25.7-33.7); MCHC 34.7 g/dl (32.0-35.9); MEAN CELL VOLUME 91.7 fl (80-96); MEAN PLT VOLUME 8.8 fl (7.5-11.1); MONO % 11.3 % (3.8-10.2); NEUT % 60.5 % (42.8-82.8); PLATELET COUNT 127 K/MM3 (134-434); RBC 4.97 M/mm3 (4.00-5.60); RDW 14.2 % (11.9-15.9); WHITE BLOOD COUNT 4.8 K/mm3 (4.0-10.0)
[2020-12-08] MEDS ORDERED: MAG HYDROX/AL HYDROX/SIMETH 30 ML UNIT-DOSE CUP ONE (19:33)
[2020-12-08 19:42] VITALS: TEMP 98.1
[2020-12-08 19:47] LABS: CHLORIDE 103 mmol/L (98-107); POTASSIUM 3.6 mmol/L (3.5-5.1); SODIUM 138 mmol/L (136-145)
[2020-12-08 19:49] LABS: ALBUMIN 4.1 g/dl (3.4-5.0); ANION GAP 9 MMOL/L (8-16); BLOOD UREA NITROGEN 12.3 mg/dL (7-18); CALCIUM 8.5 mg/dL (8.5-10.1); CO2 26 mmol/L (21-32); GLUCOSE,RANDOM 86 mg/dL (74-106); LIPASE 262 U/L (73-393)
[2020-12-08 19:52] LABS: SGOT/AST 18 U/L (15-37); SGPT/ALT 45 U/L (13-61)
[2020-12-08 19:54] LABS: BILIRUBIN,TOTAL 0.4 mg/dL (0.2-1); TOT PROT 7.4 g/dl (6.4-8.2)
[2020-12-08 19:55] LABS: ALK PHOS 112 U/L (45-117)
[2020-12-08 21:02] VITALS: BP 132/86; PULSE 84
== END 2020-12-08 21:03 | disposition home or self-care (01) ==
LOC: JER 16:43
PROC: 3E033GC Introduction of Other Therapeutic Substance into Peripheral Vein, Percutaneous Approach (ICD-10-PCS; principal; 2020-12-08)
DX: R07.9 Chest pain, unspecified (principal)
CPT/HCPCS: 36415; 71046-TC-FY; 80053; 82550; 83690; 84484; 85025; 93005; 93010; 99285-25; C9803; U0003

== ENCOUNTER 2022-07-12 08:25 | Emergency (ER) | payer OTHER, BC ==
[2022-07-12 08:40] VITALS: BP 121/67; PULSE 76; RESP 20; TEMP 97.8; BMI 28.7
[2022-07-12 10:50] LABS: BASO % 0.3 % (0-2.0); EOS % 1.8 % (0-4.5); HEMATOCRIT 47.3 % (35.4-49); HEMOGLOBIN 16.5 GM/dL (11.7-16.9); MCH 31.8 pg (25.7-33.7); MCHC 34.9 g/dl (32.0-35.9); MEAN CELL VOLUME 91.3 fl (80-96); MEAN PLT VOLUME 8.3 fl (7.5-11.1); NEUT % 49.9 % (42.8-82.8); PLATELET COUNT 121 10^3/uL (134-434); RBC 5.18 M/mm3 (4.00-5.60); RDW 14.6 % (11.9-15.9); WHITE BLOOD COUNT 3.3 K/mm3 (4.0-10.0)
[2022-07-12 11:01] LABS: INR 1.06 (0.83-1.09); PROTHROMBIN TIME (PATIENT) 12.2 SEC (9.7-13.0)
[2022-07-12 11:03] LABS: ACTIVATED PTT 32.5 SECONDS (25.2-36.5)
[2022-07-12 11:09] LABS: ALBUMIN 3.9 g/dl (3.4-5.0); BLOOD UREA NITROGEN 8.9 mg/dL (7-18); CALCIUM 8.7 mg/dL (8.5-10.1)
[2022-07-12 11:12] LABS: CREATININE 1.1 mg/dL (0.55-1.3)
[2022-07-12 11:15] LABS: BILIRUBIN,TOTAL 0.5 mg/dL (0.2-1); TOT PROT 6.8 g/dl (6.4-8.2)
== END 2022-07-12 14:34 | disposition left against medical advice (07) ==
LOC: JER 08:25
DX: R07.9 Chest pain, unspecified (principal)
CPT/HCPCS: 0241U-QW; 36415; 71045-TC-FY; 80053; 84484; 85025; 85379; 85610; 85730; 93005; 93010; 99284-25

== ENCOUNTER 2023-01-28 09:39 | Emergency (ER) | payer OTHER, BC ==
[2023-01-28 10:27] VITALS: BP 116/68; RESP 18; TEMP 98.5; BMI 29.4
[2023-01-28] MEDS ORDERED: SODIUM CHLORIDE 0.9% 1000 ML INFUS.BAG IV ONE (10:32)
[2023-01-28] MEDS ORDERED: ACETAMINOPHEN 1000 MG/100 ML BAG IVPB ONE (10:32)
[2023-01-28] MEDS ORDERED: FAMOTIDINE 20 MG/50 ML IVPB 20 MG/50 ML MG IVPB ONE ×2 (10:32→10:37)
[2023-01-28] MEDS ORDERED: ACETAMINOPHEN INJECTION 100 ML IVPB ONE (10:37)
[2023-01-28 11:38] LABS: EOS % 1.8 % (0-4.5); HEMOGLOBIN 16.8 GM/dL (11.7-16.9); LYMPH % 33.3 % (8-40); MCH 31.5 pg (25.7-33.7); MCHC 35.1 g/dl (32.0-35.9); MEAN CELL VOLUME 89.8 fl (80-96); MEAN PLT VOLUME 8.5 fl (7.5-11.1); MONO % 12.8 % (3.8-10.2); NEUT % 52.1 % (42.8-82.8); PLATELET COUNT 133 10^3/uL (134-434); RBC 5.34 M/mm3 (4.00-5.60); RDW 14.3 % (11.9-15.9); WHITE BLOOD COUNT 3.9 K/mm3 (4.0-10.0)
[2023-01-28] MEDS ORDERED: ONDANSETRON 4 MG/2 ML VIAL IVPUSH ONE (11:42)
[2023-01-28] MEDS ORDERED: ONDANSETRON 4 MG/2 ML VIAL ONE (11:58)
[2023-01-28 12:24] LABS: CALCIUM 8.8 mg/dL (8.5-10.1)
[2023-01-28 12:26] LABS: ALBUMIN 3.8 g/dl (3.4-5.0); BLOOD UREA NITROGEN 10.2 mg/dL (7-18)
[2023-01-28 12:27] LABS: CREATININE 1.2 mg/dL (0.55-1.3)
[2023-01-28 12:29] LABS: BILIRUBIN,TOTAL 1.2 mg/dL (0.2-1); TOT PROT 6.8 g/dl (6.4-8.2)
[2023-01-28 18:13] VITALS: PULSE 75
== END 2023-01-28 18:14 | disposition home or self-care (01) ==
LOC: JER 09:39
PROC: 3E033GC Introduction of Other Therapeutic Substance into Peripheral Vein, Percutaneous Approach (ICD-10-PCS; principal; 2023-01-28)
PROC: 3E033GC Introduction of Other Therapeutic Substance into Peripheral Vein, Percutaneous Approach (ICD-10-PCS; 2023-01-28)
DX: K59.00 Constipation, unspecified (principal); R10.9 Unspecified abdominal pain; Z20.822 Contact with and (suspected) exposure to COVID-19
CPT/HCPCS: 0241U-QW; 36415; 74177-TC; 80053; 83690; 85025; 99285-25; Q9967

== ENCOUNTER 2023-09-28 08:53 | Emergency (ER) | payer OTHER, BC ==
[2023-09-28 09:15] VITALS: BP 130/70; PULSE 85; RESP 18; TEMP 98.1; BMI 28.7
[2023-09-28 09:47] LABS: PH,URINE 6.5 (5.0-8.0); URINE APPEARANCE CLEAR; URINE BILIRUBIN NEGATIVE (NEGATIVE); URINE COLOR YELLOW; URINE GLUCOSE (UA) NEGATIVE (NEGATIVE); URINE KETONE NEGATIVE (NEGATIVE); URINE LEUK ESTERASE NEGATIVE (NEGATIVE); URINE NITRITE NEGATIVE (NEGATIVE); URINE PROTEIN NEGATIVE (NEGATIVE)
== END 2023-09-28 15:05 | disposition home or self-care (01) ==
LOC: JER 08:53
DX: N48.89 Other specified disorders of penis (principal); R30.9 Painful micturition, unspecified; R10.9 Unspecified abdominal pain
CPT/HCPCS: 81003; 87086; 99283-25